=== PATIENT | female | born 1980 | race Caucasian/White ===

== ENCOUNTER 2018-12-11 01:24 | Observation (INO) ==
--- NOTE | 2018-12-11 01:49 | ERNOTE ---
<Nikita Narayanan - Last Filed: 12/11/18 07:32> Medical Problem HPI - Narrative Date of Service: 12/11/18 - General Time Seen by Provider: 12/11/18 01:39 Source: patient Exam Limitations: no limitations - Immun/Allergies/Home Medications Allergies/Adverse Reactions: Allergies No Known Drug Allergies Allergy (Verified 12/11/18 02:41) Home Medications: HOME MEDICATIONS Clonidine HCl [Catapres] 0.1 mg PO HS 12/11/18 [Last Taken 12/11/18 2 tablets] traZODone HCL [Trazodone HCl] 50 mg PO HS 12/11/18 [Last Taken 12/11/18 50 mg] - History of Present History Narrative: A 8-year-old female called a suicide hotline and was brought in by the Police Department she took 2 clonidine and trazodone earlier tonight with mixed with alcohol when asked specifically if she was suicidal since I don't know she is not why she took currently she has had similar incidents in the past about 3 weeks ago patient is slightly lethargic but easily arousable Date (Duration): 12/11/18 Time (Timing): 01:47 Timing: constant Severity: moderate Review of Systems - Review of Systems Constitutional: Present: no symptoms reported EYE: Present: no symptoms reported ENT: Present: no symptoms reported Respiratory: Present: no symptoms reported Cardiology: Present: no symptoms reported Gastrointestinal/Abdominal: Present: no symptoms reported Genitourinary: Present: no symptoms reported Musculoskeletal: Present: no symptoms reported Skin: Present: no symptoms reported Neurological: Present: depressed, emotional problems Endocrine: Present: no symptoms reported Hematologic/Lymphatic: Present: no symptoms reported Psych: Present: no symptoms reported All Other Systems: All systems neg except as marked Medical History (Updated 12/11/18 @ 02:40 by Lisbet Cline RN) History of depression Surgical History: Surgical History (Updated 12/11/18 @ 02:40 by Lisbet Cline RN) Hx of tonsillectomy Family History: Family History (Updated 12/11/18 @ 02:41 by Lisbet Cline RN) Other No pertinent family history Social History: Preferred Language Malaysian No Social History Section defined Physical Exam - Physical Exam General Appearance: Present: wd/wn, lethargic Head Exam: Present: normal inspection, no evidence of injury Eye Exam: Normal inspection: bilateral, PERRL: bilateral, EOMI: bilateral Ears, Nose, Throat: Present: normal ENT inspection Neck: Present: normal inspection Respiratory: Present: no respiratory distress Cardiovascular/Chest: Present: regular rate, rhythm Gastrointestinal/Abdominal: Present: normal bowel sounds Back Exam: Present: normal inspection, normal range of motion Extremity Exam: Present: normal inspection Neurological Exam: Present: alert, oriented Skin Exam: Present: normal color Lymphatic Exam: Present: no adenopathy Progress - Results and Orders Results and Orders: etoh 328 - Vital Signs Patient's Vital Signs:: I have reviewed the patient's vital signs. - EKG EKG #1 EKG read: Interp. by me EKG Comments: Sinus rhythm heart rate is 77 mo acute changes - Progress/Reassessment Progress:: Unchanged Progress Note-Subjective: 12/11/18 07:31 Patient remains slightly during the night she multiple times refused to give us a urine or to be so we are waiting for her blood alcohol to come down to normal to be interviewed by psych and clear she took a total of 20.1 mg clonidine and trazodone on 50 mg which she normally takes 25 - Transfer of Care Physician Sign Out: Nikita Narayanan Brief History: Patient is from a sleeping during the night patient took to 0.1 clonidine's and 2 trazodone 25 mg and an intensive amount of alcohol level is 328 Receiving Physician: Hunter Hallman Pending Results: Labs Expected Disposition: Discharge Departure Clinical Impression: Overdose, Alcohol intoxication - Departure Disposition: Still a patient Condition: Serious Instructions: Accidental Overdose Referrals: Tiffani Hernandez ARNP [Primary Care Provider] - <Robert Nieves - Last Filed: 12/11/18 09:40> Medical Problem HPI - Immun/Allergies/Home Medications Immunizations: IMMUNIZATION HX Immunizations Up to Date Yes History of Influenza Vaccine Yes Medical History (Updated 12/11/18 @ 02:40 by Lisbet Cline RN) History of depression Surgical History: Surgical History (Updated 12/11/18 @ 02:40 by Lisbet Cline RN) Hx of tonsillectomy Family History: Family History (Updated 12/11/18 @ 02:41 by Lisbet Cline RN) Other No pertinent family history Social History: Preferred Language Malaysian Smoking Status Current every day smoker Alcohol Use occasionally Drug Use none No Social History Section defined Progress - Date and Time Seen: Date and Time: patient improved, more responsive, case discussed with dr denney, to admit to hospital - Vital Signs Vital Signs: Vital Signs 12/11/18 01:49 12/11/18 02:02 12/11/18 02:19 Pulse Rate 80 79 79 Respiratory Rate 14 14 14 Blood Pressure 87/62 L 86/54 L 88/56 L O2 Sat by Pulse Oximetry 100 97 98 12/11/18 02:34 12/11/18 02:45 12/11/18 03:00 Pulse Rate 77 76 83 Respiratory Rate 14 14 14 Blood Pressure 84/55 L 81/50 L 93/57 O2 Sat by Pulse Oximetry 98 98 98 12/11/18 03:15 12/11/18 03:45 12/11/18 04:00 Pulse Rate 76 81 80 Respiratory Rate 13 14 12 Blood Pressure 85/59 L 86/53 L 84/55 L O2 Sat by Pulse Oximetry 98 98 97 12/11/18 04:15 12/11/18 04:30 12/11/18 04:56 Pulse Rate 78 78 77 Respiratory Rate 12 12 12 Blood Pressure 84/56 L 83/53 L 82/46 L O2 Sat by Pulse Oximetry 98 97 97 12/11/18 05:15 12/11/18 05:47 12/11/18 06:00 Pulse Rate 82 81 75 Respiratory Rate 12 12 12 Blood Pressure 81/56 L 82/43 L 80/47 L O2 Sat by Pulse Oximetry 97 97 98 12/11/18 06:15 12/11/18 07:15 12/11/18 07:45 Pulse Rate 73 78 77 Respiratory Rate 11 L 12 11 L Blood Pressure 80/47 L 73/42 L 71/44 L O2 Sat by Pulse Oximetry 97 95 95 12/11/18 08:30 12/11/18 08:45 12/11/18 09:15 Pulse Rate 75 75 79 Respiratory Rate 12 17 12 Blood Pressure 83/55 L 83/56 L 81/58 L O2 Sat by Pulse Oximetry 100 97 96 - EKG EKG #1 EKG: NSR - Transfer of Care Expected Disposition: Admit Plan - Plan Plan: to admit to hospital
[2018-12-11] MEDS ORDERED: NORMAL SALINE 1,000 ML IV ONE ×5 (01:51→10:50)
[2018-12-11 02:24] LABS: ALT 21 U/L (19-67); AST 29 U/L (0-48); Albumin * 3.5 gm/dl (3.4-5.0); Alkaline Phosphatase * 67 U/L (50-170); BUN/Creatinine Ratio 10.5 (9.0-21.6); Bilirubin, Total 0.2 mg/dL (0.0-1.1); Blood Urea Nitrogen 10 mg/dL (3-23); Ca. Corrected For Albumin 8.9 mg/dL (8.4-10.2); Calcium * 8.8 mg/dL (7.9-10.9); Carbon Dioxide 26.3 mmol/L (24-32.6); Chloride 106 mmol/L (97-106); Glucose * 73 mg/dL (70-110); Potassium 4.3 mmol/L (3.4-4.6); Salicylate Less than 2.8 mg/dL (2.8-20.0); Sodium 142 mmol/L (132-142); TSH * 2.766 uIU/mL (0.358-3.74); Total Protein 7.2 gm/dL (6.2-8.2)
[2018-12-11 03:02] LABS: Hematocrit 38.1 % (37.0-47.0); Hemoglobin 12.3 gm/dL (12.5-16.0); Mean Corpuscular Hgb Conc 32.3 g/dl (32-36); Mean Platelet Volume 9.5 fl (8-12.5); Neutrophil % 28.3 % (42-75.0); Platelet Count 221 K/mm3 (150-450); Red Blood Count 3.97 M/mm3 (4.2-5.4); Red Cell Distribution Width 13.7 % (11.5-14.0); White Blood Count 3.4 K/mm3 (4.0-10.5)
[2018-12-11] MEDS ORDERED: NALOXONE HCL 1 MG/1 ML SYRG IV ONE (08:25)
[2018-12-11] MEDS ORDERED: NALOXONE HCL 1 MG/1 ML SYRG ONE (08:26)
[2018-12-11 08:45] LABS: Cocaine Ur Negative (NEGATIVE); Urine Appearance Slightly Cloudy (CLEAR); Urine Barbiturate Negative (NEGATIVE); Urine Benzodiazepines Negative (NEGATIVE); Urine Bilirubin Negative (NEGATIVE); Urine Blood 5 /ul (NEGATIVE); Urine Color Yellow; Urine Ketone Negative (NEGATIVE); Urine Opiates Negative (NEGATIVE); Urine PCP Negative (NEGATIVE); Urine THC Negative (NEGATIVE)
[2018-12-11 08:46] LABS: Urine Nitrite Negative (NEGATIVE); Urine Protein Negative (NEGATIVE); Urine Urobilinogen Normal (NORMAL); Urine pH 5.5 pH (5.0-7.0)
[2018-12-11 08:47] LABS: Urine RBC 0-5 /hpf (0-5); Urine WBC 0-5 /hpf (0-5)
[2018-12-11 08:48] LABS: Urine Bacteria 2+
[2018-12-11] MEDS ORDERED: NORMAL SALINE 1,000 ML IV PRN (09:54)
[2018-12-11] MEDS ORDERED: NOREPINEPHRINE BITARTRATE 4 MG in DEXTROSE 5 % IN WATER 496 ML IV PRN ×2 (12:03)
[2018-12-11] MEDS ORDERED: PHENAZOPYRIDINE HCL 100 MG TABLET PO PRN (21:00)
--- NOTE | 2018-12-11 23:57 | HP ---
Chief Complaint - Chief Complaint Date of Service: 12/11/18 Time of Service: 13:30 Chief Complaint: Took too much medication History of Present Illness: Lyndsey is a 38 yo female who had alcohol to drink and may have accidentally taken 1 more clonidine and 2 more trazodone than normal. She admits to having problems with depression and suicidal thoughts, but denies that this was an attempt to kill herself. She reports feeling tired. In the ER her blood pressure was notably low and she was given about 4 liters of fluid through bolus. These helped each time improve her blood pressure but when the fluid was stopped her blood pressure would drop. Blood pressure has been as low as 63/36. She is tired but able to be aroused. Medical History (Updated 12/12/18 @ 11:11 by Salomón Patton DO) History of depression Surgical History: Surgical History (Updated 12/11/18 @ 02:40 by Lisbet Cline RN) Hx of tonsillectomy Family History: Family History (Updated 12/11/18 @ 02:41 by Lisbet Cline RN) Other No pertinent family history Social History: Patient Lives/Resources With Spouse Utilized Occupation [place] Preferred Language Vietnamese Do you have any buddhist or No: unknown cultural preference? Smoking Status Current every day smoker Have you smoked in the past 12 Yes months Do you dip or chew tobacco No Alcohol Use occasionally Drug Use none No Social History Section defined Review Of Systems (GEN) - Review of Systems Generalized/Overall Review: Present: Fatigue. Absent: Weakness, Chills, Fever EENTM: Present: No Symptoms Reported Respiratory: Absent: Cough, Shortness of Breath Cardiac: Absent: Chest Pain, Edema, Palpitations Abdominal: Absent: Nausea, Vomiting Genitourinary: Present: No Symptoms Reported Musculoskeletal: Present: No Symptoms Reported Neurological: Present: No Symptoms Reported Skin: Present: No Symptoms Reported Immunizations: IMMUNIZATION HX Immunizations Up to Date Yes History of Influenza Vaccine Yes Allergies/Adverse Reactions: Allergies Allergy/AdvReac Type Severity Reaction Status Date / Time No Known Drug Allergies Allergy Verified 12/11/18 02:41 Home Medications: HOME MEDICATIONS Bupropion HCl [Wellbutrin Xl] 300 mg PO QAM 12/11/18 [Last Taken Unknown] FLUoxetine HCL [Fluoxetine HCl] 40 mg PO QAM 12/11/18 [Last Taken Unknown] traZODone HCL [Trazodone HCl] 50 mg PO HS 12/11/18 [Last Taken 12/11/18 50 mg] Exam - Exam Vital Signs: Vital Signs - Last Taken Temp 37.1 C 12/11/18 22:00 Pulse 84 12/11/18 22:00 Resp 16 12/11/18 22:00 BP 112/77 12/11/18 22:00 Pulse Ox 99 12/11/18 22:00 Constitutional: Present: Alert, Oriented x3, Cooperative ENT Exam: Present: hearing grossly normal Eye Exam: bilateral eye: normal inspection Respiratory: Present: lungs clear, normal breath sounds Cardiovascular/Chest: Present: regular rate, rhythm, no murmur Abdomen: Present: Normal bowel sounds, soft, nontender, nondistended Extremity: Present: normal inspection Skin Exam: Present: normal color, warm/dry, no cyanosis Appearance: Present: appropriate appearance, appropriate insight Eye contact: Present: cooperative, good eye contact, normal speech, avoids eye contact Thoughts: Present: normal thought pattern, no apparent hallucination Diagnostic Studies: Abnormal Lab Results 12/11/18 12/11/18 12/11/18 Range/Units 01:40 02:45 07:52 WBC 3.4 L (4.0-10.5) K/mm3 RBC 3.97 L (4.2-5.4) M/mm3 Hgb 12.3 L (12.5-16.0) gm/dL Neutrophils % 28.3 L (42-75.0) % Lymphocytes % 63.1 H (20-51) % Neutrophils # 1.0 L (1.3-6.0) K/mm3 Anion Gap 14.0 H (6.8-13.8) mmol/L Urine Blood (NEGATIVE) /ul Ur Epithelial Cells (0-5) /hpf Urine Bacteria (NONE) Salicylates Less than 2.8 L (2.8-20.0) mg/dL Acetaminophen Less than 0.2 L (10.0-30.0) mcg/mL Ethyl Alcohol 328.0 H 188.0 H (0.0-10.0) mg/dL 12/11/18 Range/Units 08:27 WBC (4.0-10.5) K/mm3 RBC (4.2-5.4) M/mm3 Hgb (12.5-16.0) gm/dL Neutrophils % (42-75.0) % Lymphocytes % (20-51) % Neutrophils # (1.3-6.0) K/mm3 Anion Gap (6.8-13.8) mmol/L Urine Blood 5 H (NEGATIVE) /ul Ur Epithelial Cells >25 H (0-5) /hpf Urine Bacteria 2+ H (NONE) Salicylates (2.8-20.0) mg/dL Acetaminophen (10.0-30.0) mcg/mL Ethyl Alcohol (0.0-10.0) mg/dL Laboratory Results WBC 3.4 K/mm3 (4.0-10.5) L 12/11/18 02:45 RBC 3.97 M/mm3 (4.2-5.4) L 12/11/18 02:45 Hgb 12.3 gm/dL (12.5-16.0) L 12/11/18 02:45 Hct 38.1 % (37.0-47.0) 12/11/18 02:45 MCV 96.0 fl (78-100) 12/11/18 02:45 MCH 31.0 pg (27-31) 12/11/18 02:45 MCHC 32.3 g/dl (32-36) 12/11/18 02:45 RDW 13.7 % (11.5-14.0) 12/11/18 02:45 Plt Count 221 K/mm3 (150-450) 12/11/18 02:45 MPV 9.5 fl (8-12.5) 12/11/18 02:45 Immature Gran % (Auto) 0.30 % (0.001-0.429) 12/11/18 02:45 Immature Gran # (Auto) 0.01 K/mm3 (0.000-0.0310) 12/11/18 02:45 28.3 % (42-75.0) L 12/11/18 02:45 63.1 % (20-51) H 12/11/18 02:45 6.8 % (0.0-9) 12/11/18 02:45 0.6 % (0.0-3.0) 12/11/18 02:45 0.9 % (0.0-1.0) 12/11/18 02:45 Nucleated RBC % 0.0 k/mm3 (0-1) 12/11/18 02:45 1.0 K/mm3 (1.3-6.0) L 12/11/18 02:45 2.12 k/mm3 (1.5-3.5) 12/11/18 02:45 0.2 k/mm3 (0.0-1.0) 12/11/18 02:45 0.0 k/mm3 (0.0-0.7) 12/11/18 02:45 Absolute Basophils 0.0 k/mm3 (0.0-0.1) 12/11/18 02:45 Sodium 142 mmol/L (132-142) 12/11/18 01:40 142 mmol/L (130-142) 12/11/18 01:40 Potassium 4.3 mmol/L (3.4-4.6) 12/11/18 01:40 Chloride 106 mmol/L (97-106) 12/11/18 01:40 Carbon Dioxide 26.3 mmol/L (24-32.6) 12/11/18 01:40 14.0 mmol/L (6.8-13.8) H 12/11/18 01:40 BUN 10 mg/dL (3-23) 12/11/18 01:40 0.95 mg/dL (0.4-1.4) 12/11/18 01:40 Est GFR (Non-Af Amer) 71 mL/min (60-130) 12/11/18 01:40 10.5 (9.0-21.6) 12/11/18 01:40 73 mg/dL (70-110) 12/11/18 01:40 Calcium 8.8 mg/dL (7.9-10.9) 12/11/18 01:40 Calcium Adj for Albumin 8.9 mg/dL (8.4-10.2) 12/11/18 01:40 0.2 mg/dL (0.0-1.1) 12/11/18 01:40 AST 29 U/L (0-48) 12/11/18 01:40 ALT 21 U/L (19-67) 12/11/18 01:40 67 U/L (50-170) 12/11/18 01:40 7.2 gm/dL (6.2-8.2) 12/11/18 01:40 3.5 gm/dl (3.4-5.0) 12/11/18 01:40 TSH 2.766 uIU/mL (0.358-3.74) 12/11/18 01:40 Yellow 12/11/18 08:27 Slightly cloudy (CLEAR) 12/11/18 08:27 5.5 pH (5.0-7.0) 12/11/18 08:27 Ur Specific Given 1.030 SP.GR. (1.005-1.010) 12/11/18 08:27 Negative mg/dL (NEGATIVE) 12/11/18 08:27 Negative mg/dL (NEGATIVE) 12/11/18 08:27 Negative mg/dL (NEGATIVE) 12/11/18 08:27 5 /ul (NEGATIVE) H 12/11/18 08:27 Negative (NEGATIVE) 12/11/18 08:27 Negative mg/dl (NEGATIVE) 12/11/18 08:27 Normal EU/dl (NORMAL) 12/11/18 08:27 Ur Leukocyte Esterase Negative /ul (NEGATIVE) 12/11/18 08:27 0-5 /hpf (0-5) 12/11/18 08:27 0-5 /hpf (0-5) 12/11/18 08:27 Ur Epithelial Cells >25 /hpf (0-5) H 12/11/18 08:27 2+ (NONE) H 12/11/18 08:27 No culture indicated 12/11/18 08:27 Urine HCG, Qual Negative (NEGATIVE) 12/11/18 08:30 Salicylates Less than 2.8 mg/dL (2.8-20.0) L 12/11/18 01:40 Negative (NEGATIVE) 12/11/18 08:27 Acetaminophen Less than 0.2 mcg/mL (10.0-30.0) L 12/11/18 01:40 Negative (NEGATIVE) 12/11/18 08:27 Ur Phencyclidine Scrn Negative (NEGATIVE) 12/11/18 08:27 Urine Amphetamine Negative (NEGATIVE) 12/11/18 08:27 U Benzodiazepines Scrn Negative (NEGATIVE) 12/11/18 08:27 Negative (NEGATIVE) 12/11/18 08:27 Negative (NEGATIVE) 12/11/18 08:27 Ethyl Alcohol 188.0 mg/dL (0.0-10.0) H 12/11/18 07:52 Assessment/Plan - Narrative Narrative: Lyndsey is a 38 yo female with hypotension due to accidentally taking more clonidine than prescribed. She has had alcohol so there is a chance that she has ingested more clinidine that reported. Blood pressure is significantly low despite 4 liters of fluids, although it sounds like her baseline blood pressure is on the lower side, so this may not be far from her baseline. As she has already had 4 liters of fluids I will start her on norepinephrine drip to titrate systolic blood pressure >90 and map >65. Expect discharge tomorrow once blood pressure is stablized, therefore will admit to observation. I will consult joby for depression, although I do not necessarily think this was a suicide attempt. - Assessment/Plan (1) Overdose Problem: Acute (2) Hypotension due to drugs Problem: Acute
[2018-12-12 10:27] VITALS: BP 104/70
--- NOTE | 2018-12-12 11:11 | DS ---
(1) Hypotension due to drugs Problem: Acute Description of Stay: Lyndsey is a 38 yo female admitted for hypotension after accidentally taking 1 extra clonidine. She was somnolent and had blood pressures of 70/40. She was given 4 liters of fluid in the Er but despite this her blood pressure remained low. She was admitted to [facility] but as she had already received a significant amount of fluid and needed additional blood pressure support she was started on norepi. This improved the blood pressure and gradually she was able to be weaned off of this and fluids and blood pressure remained stable with monitoring over night. I talked with her and her who are both comfortable with home discharge. She has an outpatient psych appointment in two days. Procedures Performed: none Results and Findings: Lab Pending Results 12/11/18 01:40: Sodium 142, Plasma Sodium 142, Potassium 4.3, Chloride 106, Carbon Dioxide 26.3, Anion Gap 14.0 H, BUN 10, Creatinine 0.95, Est GFR (Non-Af Amer) 71, BUN/Creatinine Ratio 10.5, Random Glucose 73, Calcium 8.8, Calcium Adj for Albumin 8.9, Total Bilirubin 0.2, AST 29, ALT 21, Alkaline Phosphatase 67, Total Protein 7.2, Albumin 3.5, TSH 2.766, Salicylates Less than 2.8 L, Acetaminophen Less than 0.2 L, Ethyl Alcohol 328.0 H 12/11/18 02:45: WBC 3.4 L, RBC 3.97 L, Hgb 12.3 L, Hct 38.1, MCV 96.0, MCH 31.0, MCHC 32.3, RDW 13.7, Plt Count 221, MPV 9.5, Immature Gran % (Auto) 0.30, Immature Gran # (Auto) 0.01, Neutrophils % 28.3 L, Lymphocytes % 63.1 H, Monocytes % 6.8, Eosinophils % 0.6, Basophils % 0.9, Nucleated RBC % 0.0, Neutrophils # 1.0 L, Lymphocytes # 2.12, Monocytes # 0.2, Eosinophils # 0.0, Absolute Basophils 0.0 12/11/18 07:52: Ethyl Alcohol 188.0 H 12/11/18 08:27: Urine Color Yellow, Urine Appearance Slightly cloudy, Urine pH 5.5, Ur Specific [place] 1.030, Urine Protein Negative, Urine Glucose (UA) Negative, Urine Ketones Negative, Urine Blood 5 H, Urine Nitrate Negative, Urine Bilirubin Negative, Urine Urobilinogen Normal, Ur Leukocyte Esterase Negative, Urine RBC 0-5, Urine WBC 0-5, Ur Epithelial Cells >25 H, Urine Bacteria 2+ H, Urine Culture Comments No culture indicated 12/11/18 08:27: Urine Opiates Screen Negative, Barbiturate Screen Negative, Ur Phencyclidine Scrn Negative, Urine Amphetamine Negative, U Benzodiazepines Scrn Negative, Urine Cocaine Screen Negative, Urine Marijuana (THC) Negative 12/11/18 08:30: Urine HCG, Qual Negative Discharge Location: Home Disposition: Home self-care Condition: Good Discharge Activity: Activity as tolerated Discharge Diet: General/regular food Referrals: Tiffani Hernandez ARNP [Primary Care Provider] - [facility] [Non Staff Physicians] - 12/14/18 (Outpatient psych (Already has appointment)) Problem Oriented Discharge Instructions to Patient/Family: Hypotension, [id number] Complete Home Medications List: Complete Home Medication List: Bupropion HCl [Wellbutrin Xl] 300 mg PO QAM 12/11/18 FLUoxetine HCL [Fluoxetine HCl] 40 mg PO QAM 12/11/18 traZODone HCL [Trazodone HCl] 50 mg PO 12/11/18
== END 2018-12-12 11:28 | disposition home or self-care (01) ==
LOC: ER 01:24 → INTOOBSV 09:40 → SCU 09:40
PROVIDERS: ADMIT Family Medicine; ATTEND Family Medicine
CPT/HCPCS: 36415; 80053; 80307; 80320; 80329; 81001; 84443; 84703; 85025; 93005; 96361; 96365; 96366; 96375; 99285; G0378; G0480; G0481